=== PATIENT | female | born 1935 | race Caucasian/White ===

== ENCOUNTER → 2016-10-11 | Outpatient (CLI) | payer MEDICARE, OTHER ==
[~2016-10-11] VITALS: Ht 160 cm; Wt 85.3 kg
== END ==
LOC: OPSV 10:25
DX: N18.5 Chronic kidney disease, stage 5 (principal); D63.1 Anemia in chronic kidney disease
CPT/HCPCS: 96365; 96366; J1756; J7050

== ENCOUNTER → 2016-10-25 | Outpatient (CLI) | payer MEDICARE, OTHER ==
[~2016-10-25] VITALS: Ht 160 cm; Wt 85.3 kg
== END ==
LOC: OPSV 10:58
DX: N18.5 Chronic kidney disease, stage 5 (principal); D63.1 Anemia in chronic kidney disease
CPT/HCPCS: 96365; 96366; J1756; J7050

== ENCOUNTER 2022-01-22 09:49 | Emergency (ER) | payer MEDICARE, OTHER ==
[~2022-01-22 09:49] MED LIST: ASPIRIN CHEWABL81 MG PO; CATAPRES 0.1MG0.1 MG TD; COREG 25MG TAB25 MG PO; DILTIAZEM 12HR60 MG PO; FERROUS SULFAT325 M2 PO; HUMALOG100 UNIT/1 SQ; HYDRALAZINE HCL50 MG PO; IMDUR ER TAB 6060 MG PO; LACTULOSE20 GM/30 M PO; LANTUS100 UNIT/1 SQ; LASIX80 MG PO; LIPITOR TAB 2020 MG PO; LORTAB 5-325 M1 EACH PO; NEPHROCAPS SOFTG1 MG PO; RENVELA800 MG PO; SYNTHROID125 MCG PO; VITAMIN D2000 UNI1 PO; ZAROXOLYN/DIUL2.5 MG PO
[2022-01-22 11:29] LABS: HEMOGLOBIN 10.1 gm/dl (12.3-15.3); RED BLOOD COUNT 3.31 M/UL (4.00-5.10); WHITE BLOOD COUNT 7.8 K/UL (4.5-11.0)
== END 2022-01-22 15:31 | disposition home or self-care (01) ==
LOC: ER1 09:49
PROVIDERS: Family Medicine
DX: T82.868A Thrombosis due to vascular prosthetic devices, implants and grafts, initial encounter (principal); I12.0 Hypertensive chronic kidney disease with stage 5 chronic kidney disease or end stage renal disease; N18.6 End stage renal disease; Z95.0 Presence of cardiac pacemaker
CPT/HCPCS: 80053; 83735; 85025; 99284